=== PATIENT | male | born 1990 | race Caucasian/White ===

== ENCOUNTER 2017-04-17 09:00 | Outpatient (RCR) | payer MEDICAID, SELFPAY | END 2017-04-17 23:59 | LOC: PT 09:00 | PROVIDERS: Visit Provider Nurse Anesthetist, Certified Registered | DX: M54.6 Pain in thoracic spine (principal); M54.5 Low back pain | CPT/HCPCS: 97010; 97012; 97014; 97110; 97140; 97162; 97760; G0283 ==

== ENCOUNTER 2017-04-19 10:00 | Outpatient (RCR) | payer MEDICAID, SELFPAY | END 2017-04-19 23:59 | LOC: PT 10:00 | PROVIDERS: Family Provider Family Medicine; PCP Family Medicine; Visit Provider Anesthesiology | DX: M54.6 Pain in thoracic spine (principal); M54.5 Low back pain | CPT/HCPCS: 97010; 97012; 97014; 97110; G0283 ==

== ENCOUNTER 2017-04-20 08:55 | Emergency (ER) | payer MEDICAID, SELFPAY ==
[2017-04-20 09:04] VITALS: BP 167/110; PULSE 89; RESP 18; TEMP 36.8; O2SAT 98; BMI 25.7
--- NOTE | 2017-04-20 09:25 | HMH.EDWNDL ---
ED Disposition Clinical Impression: Avulsion of skin Disposition: Home, Self-Care Condition on Discharge: Good Instructions: DI for Avulsion Laceration (Not Requiring Sutures) Additional Instructions: Keep wound covered and dry; cleanse and change bandage twice daily; watch for infection ;recommend wound check by your family MD in one to three days. Tylenol and/or Advil as needed. Referrals: Justin Morton MD [Staff Physician] - - Critical Care Critical Care Time: No Attestation: On , the high probability of a clinically significant, sudden or life threatening deterioration of the following system(s) required my full and direct attention, intervention and personal management. The time I documented below is in addition to time spent performing reported procedures but includes the following listed in this critical care notation. Medical Decision Making - Medical Records Medical records reviewed: Yes: I reviewed the patient's medical records. Vital Signs: 04/20/17 09:04 Temperature 98.3 F Temperature Source Oral Pulse Rate [Right Brachial] 89 Respiratory Rate 18 Blood Pressure [Right Arm] 167/110 Blood Pressure Mean [Right Arm] 129 Blood Pressure Source [Right Arm] Automatic Cuff Blood Pressure Position [Right Arm] Right Lateral 02 Sat by Pulse Oximetry 98 Oxygen Delivery Method Room Air Orders (Tests/Meds): ED MEDICATIONS Discontinued Medications Generic Name Dose Route Start Last Admin Trade Name Freq PRN Reason Stop Dose Admin Tetanus/Diphtheria Toxoids 0.5 ml 04/20/17 09:16 Tenivac 0.5ml Syringe IM 04/20/17 09:17 .ONCE ONE - Alfredo Inquiry Pt receiving controlled substance: No Wound/Laceration HPI - General Chief Complaint: Wound/Laceration Stated Complaint: lac left index finger Time Seen by Provider: 04/20/17 09:15 Mode of Arrival: Ambulatory Source of Information: Patient Limitations: No Limitations Description of Symptoms (Recalled from ER Triage Doc. by RN): pt states he was slicing potatoes for breakfast when he incidentally sliced a piece off the. end of his index finger, left side. 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) Place: home Patient tetanus UTD: No (updated today in ED; cannot recall most recent) Context: accidental Associated symptoms: none Treatments prior to arrival: bandage - Related Data Allergies Allergy/AdvReac Type Severity Reaction Status Date / Time No Known Allergies Allergy Unverified 04/03/17 14:49 [facility] History I have reviewed the patient's past medical history: Yes Fractures: No - *Social History Educational Level: Attended High School Smoking Status: Unknown if ever smoked Alcohol Intake: former Alcohol Intake Frequency:: a few times a month - Psychiatric History Expresses thoughts of harming self/others: None Suicide Plan Description: No Plan ROS Obtained: Yes All systems reviewed & no additional complaints except as noted Physical Exam - General General appearance: alert, in no apparent distress - Eye Eye exam: Present: normal appearance, PERRL, EOMI - Respiratory Respiratory exam: Absent: respiratory distress - Cardiovascular Cardiovascular exam: Present: other (radial pulse normal LUE) - Extremities Exam Extremities exam: Present: full ROM, normal capillary refill. Absent: joint swelling - Neurological Exam Neurological exam: Present: alert, oriented X3. Absent: motor sensory deficit - Skin Skin exam: Present: warm, dry, other (0.5 mm shallow avulsion palmar aspect L fingertip; no bone or tendon exposure; cleansed and examined; bleeding controlled. No FB or debris. )
--- NOTE | 2017-04-20 09:28 | ED_ITS ---
ED Disposition Clinical Impression: Avulsion of skin Disposition: Home, Self-Care Condition on Discharge: Good Instructions: DI for Avulsion Laceration (Not Requiring Sutures) Additional Instructions: Keep wound covered and dry; cleanse and change bandage twice daily; watch for infection ;recommend wound check by your family MD in one to three days. Tylenol and/or Advil as needed. Referrals: Justin Morton MD [Staff Physician] - - Critical Care Critical Care Time: No Attestation: On , the high probability of a clinically significant, sudden or life threatening deterioration of the following system(s) required my full and direct attention, intervention and personal management. The time I documented below is in addition to time spent performing reported procedures but includes the following listed in this critical care notation. Medical Decision Making - Medical Records Medical records reviewed: Yes: I reviewed the patient's medical records. Vital Signs: 04/20/17 09:04 Temperature 98.3 F Temperature Source Oral Pulse Rate [Right Brachial] 89 Respiratory Rate 18 Blood Pressure [Right Arm] 167/110 Blood Pressure Mean [Right Arm] 129 Blood Pressure Source [Right Arm] Automatic Cuff Blood Pressure Position [Right Arm] Right Lateral 02 Sat by Pulse Oximetry 98 Oxygen Delivery Method Room Air Orders (Tests/Meds): ED MEDICATIONS Discontinued Medications Generic Name Dose Route Start Last Admin Trade Name Freq PRN Reason Stop Dose Admin Tetanus/Diphtheria Toxoids 0.5 ml 04/20/17 09:16 Tenivac 0.5ml Syringe IM 04/20/17 09:17 .ONCE ONE - Alfredo Inquiry Pt receiving controlled substance: No Wound/Laceration HPI - General Chief Complaint: Wound/Laceration Stated Complaint: lac left index finger Time Seen by Provider: 04/20/17 09:15 Mode of Arrival: Ambulatory Source of Information: Patient Limitations: No Limitations Description of Symptoms (Recalled from ER Triage Doc. by RN): pt states he was slicing potatoes for breakfast when he incidentally sliced a piece off the. end of his index finger, left side. 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 Patient tetanus UTD: No (updated today in ED; cannot recall most recent) Context: accidental Associated symptoms: none Treatments prior to arrival: bandage - Related Data Allergies Allergy/AdvReac Type Severity Reaction Status Date / Time No Known Allergies Allergy Unverified 04/03/17 14:49 [facility] History I have reviewed the patient's past medical history: Yes Fractures: No - *Social History Educational Level: Attended High School Smoking Status: Unknown if ever smoked Alcohol Intake: former Alcohol Intake Frequency:: a few times a month - Psychiatric History Expresses thoughts of harming self/others: None Suicide Plan Description: No Plan ROS Obtained: Yes All systems reviewed & no additional complaints except as noted Physical Exam - General General appearance: alert, in no apparent distress - Eye Eye exam: Present: normal appearance, PERRL, EOMI - Respiratory Respiratory exam: Absent: respiratory distress - Cardiov
[2017-04-20 09:41] VITALS: BP 139/72; PULSE 75; RESP 16; O2SAT 99
== END 2017-04-20 09:41 | disposition home or self-care (01) ==
LOC: ER 09:34
PROVIDERS: Emergency Provider Emergency Medicine; Family Provider Family Medicine; PCP Family Medicine
DX: S61.211A Laceration without foreign body of left index finger without damage to nail, initial encounter (principal); W26.0XXA Contact with knife, initial encounter; Y93.G3 Activity, cooking and baking; Y92.000 Kitchen of unspecified non-institutional (private) residence as the place of occurrence of the external cause; Z23 Encounter for immunization
CPT/HCPCS: 90714; 96372; 99282

== ENCOUNTER → 2017-04-23 09:17 | Outpatient (POV) | payer MEDICAID, SELFPAY ==
[2017-04-23 09:29] VITALS: BP 125/75; PULSE 68; RESP 18; BMI 25.7
--- NOTE | 2017-04-23 10:00 | HMH.PAINSOAP ---
[facility] Pain Management SOAP Note Subjective:: Patient is a pleasant 26-year-old white male that returns her pain clinic today for follow-up visit. We initially saw this patient on 02/26/2017. His complaint at that time was low thoracic high lumbar pain. Patient had surgery consultation with Dr. Natarajan. No surgery was recommended. The patient returns today after receiving 8 weeks of physical therapy. He reports minimal relief. Patient also been taking NSAIDs for his pain with minimal relief. Patient's pain is low thoracic. He describes a constant, dull, sharp, stabbing at times. Patient reports pain is 8/9 times. He does have radicular symptoms associated with this. His thoracic MRI does show degenerative disc at T6-7, T7-8, T8-9 levels. Disc at T8-9 does indent the thecal sac. I discussed in detail with the patient regarding thoracic epidural steroid injection at the T8-9 level. He is to proceed Objective:: Patient is awake alert oriented ?3. In no acute distress. Flexion extension lumbar spine somewhat guarded secondary to pain. Deep tendon reflexes upper and lower extremities normal. Motor strength upper and lower extremities normal. There is no gross sensory deficit. Gait is normal. 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 Thoracic radicular symptoms. Plan:: Patient has tried and failed conservative measures such as respiratory care assistant, physical therapy, NSAIDs. I suggest we move forward with thoracic epidural steroid injection at the T9 level. Discussed in detail with the patient regarding the injection. He understands. Wishes to proceed.
--- NOTE | 2017-04-23 10:04 | P.CONS_ITS ---
[facility] Pain Management SOAP Note Subjective:: Patient is a pleasant 26-year-old white male that returns her pain clinic today for follow-up visit. We initially saw this patient on 02/26/2017. His complaint at that time was low thoracic high lumbar pain. Patient had surgery consultation with Dr. Natarajan. No surgery was recommended. The patient returns today after receiving 8 weeks of physical therapy. He reports minimal relief. Patient also been taking NSAIDs for his pain with minimal relief. Patient's pain is low thoracic. He describes a constant, dull, sharp, stabbing at times. Patient reports pain is 8/9 times. He does have radicular symptoms associated with this. His thoracic MRI does show degenerative disc at T6-7, T7- 8, T8-9 levels. Disc at T8-9 does indent the thecal sac. I discussed in detail with the patient regarding thoracic epidural steroid injection at the T8- 9 level. He is to proceed Objective:: Patient is awake alert oriented ?3. In no acute distress. Flexion extension lumbar spine somewhat guarded secondary to pain. Deep tendon reflexes upper and lower extremities normal. Motor strength upper and lower extremities normal. There is no gross sensory deficit. Gait is normal. 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 Thoracic radicular symptoms. Plan:: Patient has tried and failed conservative measures such as respiratory care faculty, physical therapy, NSAIDs. I suggest we move forward with thoracic epidural steroid injection at the T9 level. Discussed in detail with the patient regarding the injection. He understands. Wishes to proceed.
== END ==
PROVIDERS: Family Provider Family Medicine; PCP Family Medicine; Visit Provider Nurse Anesthetist, Certified Registered
DX: M51.14 Intervertebral disc disorders with radiculopathy, thoracic region (principal)
CPT/HCPCS: 99212

== ENCOUNTER → 2017-05-18 13:26 | Day surgery (SDC) | payer MEDICAID, SELFPAY ==
[2017-05-18 13:35] VITALS: BP 138/78; PULSE 79; RESP 18; TEMP 36.5; O2SAT 99; BMI 25.7
[2017-05-18 14:00] VITALS: BP 137/75; PULSE 94; RESP 18
[2017-05-18 14:02] VITALS: BP 132/81; PULSE 85; RESP 18
--- NOTE | 2017-05-18 14:08 | HMH.PMPROC ---
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 He does have degenerative disc disease of the thoracic spine at T6-7, T7-8, T8-9. He is not a surgical candidate. He has seen Dr. Natarajan. He has failed all conservative therapy including nonsteroidal anti-inflammatories. We will do a thoracic epidural steroid injection today to see if this helps him with his pain symptoms. Procedure Details:: Thoracic epidural steroid injection under fluoroscopy Informed consent was obtained and the risk and benefits of the procedure was explained to the patient. Patient was taken to the procedure room. The back was prepped using ChloraPrep. C-arm fluoroscopy was used to view the thoracic spine. The skin and subtest tissues were anesthetized using lidocaine. I placed a 17-gauge Touhy epidural needle into the T8-T9 interspace. I advanced using [id number] to air and fluoroscopic guidance until the epidural space was reached. Confirmation of needle placement in the epidural space was with dye. After this we injected 1 mL lidocaine 1.5% and Depo-Medrol 80 mg. The patient tolerated the procedure well with no complication. Plan and Disposition:: We will follow-up with him in 2 weeks. We will reevaluate his symptoms at that time.
[2017-05-18 14:14] VITALS: BP 149/79; PULSE 70; TEMP 36.5
--- NOTE | 2017-05-18 14:34 | P.PCN_ITS ---
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 He does have degenerative disc disease of the thoracic spine at T6-7 , T7-8, T8-9. He is not a surgical candidate. He has seen Dr. Natarajan. He has failed all conservative therapy including nonsteroidal anti-inflammatories. We will do a thoracic epidural steroid injection today to see if this helps him with his pain symptoms. Procedure Details:: Thoracic epidural steroid injection under fluoroscopy Informed consent was obtained and the risk and benefits of the procedure was explained to the patient. Patient was taken to the procedure room. The back was prepped using ChloraPrep. C-arm fluoroscopy was used to view the thoracic spine. The skin and subtest tissues were anesthetized using lidocaine. I placed a 17-gauge Touhy epidural needle into the T8-T9 interspace. I advanced using [id number] to air and fluoroscopic guidance until the epidural space was reached. Confirmation of needle placement in the epidural space was with dye. After this we injected 1 mL lidocaine 1.5% and Depo-Medrol 80 mg. The patient tolerated the procedure well with no complication. Plan and Disposition:: We will follow-up with him in 2 weeks. We will reevaluate his symptoms at that time.
== END ==
PROVIDERS: Family Provider Family Medicine; PCP Family Medicine; Visit Provider Anesthesiology
DX: M51.14 Intervertebral disc disorders with radiculopathy, thoracic region (principal)
CPT/HCPCS: 62321; J1040; Q9966

== ENCOUNTER → 2017-10-29 10:50 | Outpatient (CLI) | payer MEDICAID, SELFPAY ==
--- NOTE | 2017-10-29 10:55 | US_ITS ---
ULTRASOUND THYROID HISTORY: Thyroid enlarged PROCEDURE: Multiple sagittal and transverse ultrasound images of the thyroid. COMPARISON: June 2015 thyroid ultrasound FINDINGS No significant change since previous June, thyroid ultrasound Again we see enlarged gland with very coarse inhomogeneous pattern throughout both right and left lobe as well as isthmus. Findings likely reflect underlying thyroiditis or possibly a multinodular pattern without discrete or dominant nodule. Perhaps slight increase color Doppler flow throughout both right and left lobe RIGHT Lobe: 4.8 cm x 2.5 cm wide x 2.5 cm AP LEFT Lobe: 4.5 cm x 2 cm wide x 2.5 cm AP Gland appears to remain enlarged although measurements are slightly less than previous study I doubt there is been significant change IMPRESSION: Thyromegaly Enlarged gland bilateral , with Very Coarse inhomogeneous pattern bilaterally. Gland appears similar to previous study from 2016.. No significant change No dominant nodules.
== END ==
PROVIDERS: Family Provider Family Medicine; PCP Family Medicine; Visit Provider Family Medicine
DX: E03.9 Hypothyroidism, unspecified (principal)
CPT/HCPCS: 76536

== ENCOUNTER → 2019-05-14 16:23 | Outpatient (CLI) | payer OTHER, SELFPAY ==
--- NOTE | 2019-05-14 16:30 | XR_ITS ---
PROCEDURE: XR KNEE LT 3V CLINICAL INDICATION: LT KNEE PAIN COMPARISON: None FINDINGS: No fracture or dislocation. No lytic or blastic change. There is normal mineralization. The joint spaces are well-preserved. No significant degenerative/arthritic changes. No erosive changes evident. Other findings:None. IMPRESSION: Negative left knee Dictated by: Tesfaye Bonilla MD 05/14/2019 17:41 Electronically signed by Tesfaye Bonilla MD in [place] 05/14/2019 17:41
--- NOTE | 2019-05-14 16:30 | XR_ITS ---
PROCEDURE: XR CERVICAL SPINE 2V CLINICAL INDICATION: NECK PAIN COMPARISON: No exams were available for comparison FINDINGS: There is normal alignment. No fracture or dislocation is evident. The disc spaces are well preserved. No lytic or blastic change. No cervical rib IMPRESSION: Negative cervical spine Dictated by: Tesfaye Bonilla MD 05/14/2019 17:39 Electronically signed by Tesfaye Bonilla MD in [place] 05/14/2019 17:39
== END ==
PROVIDERS: PCP Family Medicine; Visit Provider Physician Assistant
DX: M25.562 Pain in left knee (principal); M54.2 Cervicalgia
CPT/HCPCS: 72040; 73562

== ENCOUNTER → 2019-05-22 15:01 | Outpatient (CLI) | payer OTHER, SELFPAY ==
--- NOTE | 2019-05-22 15:13 | MR_ITS ---
PROCEDURE: MR CERVICAL SPINE WO CON CLINICAL INDICATION: NECK PAIN, PARESTHESIA OF SKIN, PAIN IN LEFT ARM, PAIN IN RI Neck pain, bilateral arm pain with numbness and tingling COMPARISON: XR CERVICAL SPINE 2V from 05/14/2019 TECHNIQUE: Standard multiplanar multiecho sequences are performed without contrast. 3-D MIP and myelographic images are also rendered and reviewed FINDINGS: Normal alignment. Cranial cervical junction has an unremarkable appearance. The cervical cord has an unremarkable appearance. No disc herniation canal stenosis or significant degenerative changes are evident. No foraminal narrowing or lateral recess narrowing. There is slight decrease in the disc height at C4-C5 and C5-C6. IMPRESSION: Essentially negative MRI of the cervical spine Dictated by: Tesfaye Bonilla MD 05/23/2019 09:19 Electronically signed by Tesfaye Bonilla MD in [place] 05/23/2019 09:19
== END ==
PROVIDERS: PCP Family Medicine; Visit Provider Physician Assistant
DX: M54.2 Cervicalgia (principal); R20.2 Paresthesia of skin; M79.602 Pain in left arm; M79.601 Pain in right arm
CPT/HCPCS: 72141; 76376

== ENCOUNTER 2020-04-16 19:07 | Emergency (ER) | payer OTHER, SELFPAY ==
[2020-04-16 19:30] VITALS: BP 166/94; PULSE 66; RESP 16; TEMP 36.9; O2SAT 98; BMI 31.1
--- NOTE | 2020-04-16 19:42 | HMH.EDUTC ---
[facility] [place] Dis[place] Clinical Impression: URI (upper respiratory infection) Qualifiers: URI type: unspecified URI Qualified Code(s): J06.9 - Acute upper respiratory infection, unspecified Disposition: Home, Self-Care Condition on Discharge: Good Instructions: Sore Throat, Sinusitis, DI for COVID-19 (Suspected or Confirmed ) Additional Instructions: *Monitor Temp, Over the counter Motrin or Tylenol as directed/as needed Tylenol every 4 hours and Motrin every 6 hours (as long as your family doctor has told you that you can take it) for fever or pain. and straight to ER if unable to lower temp less than 101.0 after medication given *Warm salt water gargles may help to soothe the throat *Throat Lozenges *Warm fluids like tea with honey may help to soothe the throat *Sleep elevated *Humidifier/Vaporizer Follow up IMMEDIATELY for new or worsening symptoms or no Noticeable improvement over the next 48-72 hours. 911 for difficulty breathing or swallowing You were tested for today for COVID19 your test result should be back in the next 24-48 hours, you may call to the [facility] to see if your test results are back in the next 48 hours [phone] [facility] hours are 9am-9pm You was given a handout with instructions for Self Quarantine and Self isolation for while you wait on test results and what to do if they are positive If you are positive the Health Dept will be contacting you also Prescriptions: Azithromycin [Z-Brandan 250mg Tab] 250 mg PO DIRECTED #6 tab Transmission Status: Pending to [id number] Referrals: Catalina Morton MD [Primary Care Provider] - As needed Forms: Work/School Release Time of Disposition: 19:52 Medical Decision Making - Alfredo Inquiry Pt receiving controlled substance: No Alfredo was queried for this patient: No Vital Signs: 04/16/20 19:30 Temperature 98.4 F Temperature Source Oral Pulse Rate [Right] 66 Respiratory Rate 16 Blood Pressure [Right Arm] 166/94 H Blood Pressure Mean [Right Arm] 118 Blood Pressure Source [Right Arm] Automatic Cuff Blood Pressure Position [Right Arm] Sitting 02 Sat by Pulse Oximetry 98 Oxygen Delivery Method Room Air Orders (Tests/Meds): ORDERS Category Date Time Status Covid-19 Nasal PCR ([facility]) Routine Lab 04/16/20 19:32 Received [facility] [place] HPI - General Stated complaint: covid test Time Seen by Provider: 04/16/20 19:42 Mode of Arrival: Ambulatory Source of Information: Patient Limitations: No Limitations Description of Symptoms (Recalled from Triage Doc. by RN): body aches, sore throat, congestion and cough that started two days ago HEENT Symptoms (Recalled from RN notes): No Resp Symptoms (Recalled from RN notes): No Skin Symptoms (Recalled from RN notes): No MS Symptoms (Recalled from RN notes): No Functional Status (Recalled from RN notes): na - History of Present Illness Provider Complaint: Patient state that he has been having sinus pain and pressure, sore throat, body aches, ear pain and chills States that he was seen by his PCP and was given steriod dose pack States that he isnt feeling any better and now blowing yellowish green from his nose so he came in to get checked for COVID - Related Data Home Medications Medication Instructions Recorded Confirmed Levothyroxine Sodium 200 mcg PO DAILY 12/05/17 05/26/19 [Levothyroxine 200mcg (0.2mg) Tab] allopurinoL [Allopurinol 100mg 100 mg PO DAILY 12/05/17 05/26/19 tablet] Previous Rx's Medication Instructions Recorded Azithromycin [Z-Brandan 250mg Tab*] 250 mg PO UD DOSE PK #6 tab 05/26/19 Brompheniramine/Pseudoephed/Dm 5 ml PO Q6HP PRN #240 syrup 05/26/19 [Bromfed Dm Cough Syrup] predniSONE [Deltasone 10mg tablet] 10 mg PO BID 3 Days #6 tab 05/26/19 Azithromycin [Z-Brandan 250mg Tab] 250 mg PO DIRECTED #6 tab 04/16/20 Allergies Allergy/AdvReac Type Severity Reaction Status Date / Time No Known Allergies Allergy Verified 12/05/17 01:10 - Worker's Comp Is thi
[2020-04-16 20:04] VITALS: BP 154/70; PULSE 87; RESP 16; TEMP 36.9; O2SAT 98
--- NOTE | 2020-04-17 13:30 | PC.NURSE ---
patient notified of positive covid results
== END 2020-04-16 20:06 | disposition home or self-care (01) ==
PROVIDERS: Emergency Provider Nurse Practitioner; PCP Family Medicine
DX: U07.1 COVID-19 (principal)
CPT/HCPCS: 99202; G0463; U0003

== ENCOUNTER 2020-05-07 11:14 | Emergency (ER) | payer OTHER, SELFPAY ==
[2020-05-07 11:15] VITALS: BP 157/82; PULSE 74; RESP 22; TEMP 37; O2SAT 98; BMI 30.7
--- NOTE | 2020-05-07 11:17 | HMH.EDGENADL ---
ED Disposition Clinical Impression: Pneumonia Qualifiers: Pneumonia type: due to unspecified organism Laterality: left Lung location: upper lobe of lung Qualified Code(s): J18.9 - Pneumonia, unspecified organism Disposition: Home, Self-Care Condition on Discharge: Good Additional Instructions: Take antibiotics as prescribed. Drink plenty of clear fluids. Use ibuprofen/Tylenol as needed. Always use ibuprofen with food. Return immediately if recurrent shortness of breath, fever/chills, decreased p.o. intake, or other new concerning symptoms. Prescriptions: Azithromycin [Z-Brandan 250mg Tab] 250 mg PO DIRECTED #6 tab Transmission Status: Pending to [id number] Referrals: Catalina Morton MD [Primary Care Provider] - - Critical Care Critical Care Time: No Attestation: On , the high probability of a clinically significant, sudden or life threatening deterioration of the following system(s) required my full and direct attention, intervention and personal management. The time I documented below is in addition to time spent performing reported procedures but includes the following listed in this critical care notation. Medical Decision Making - Medical Records Medical records reviewed: Yes: I reviewed the patient's medical records. - Alfredo Inquiry Pt receiving controlled substance: No Vital Signs: 05/07/20 11:15 05/07/20 12:26 05/07/20 12:30 Temperature 98.6 F Temperature Source Oral Pulse Rate [Radial] 74 81 78 Respiratory Rate 22 18 20 Blood Pressure [Right Arm] 157/82 H 132/93 H 132/93 H Blood Pressure Mean [Right Arm] 107 106 106 Blood Pressure Source [Right Arm] Automatic Cuff Blood Pressure Position [Right Arm] Sitting Supine 02 Sat by Pulse Oximetry 98 95 92 L Oxygen Delivery Method Room Air Room Air 05/07/20 13:00 05/07/20 13:30 Temperature Temperature Source Pulse Rate [Radial] 76 73 Respiratory Rate 20 20 Blood Pressure [Right Arm] 136/93 H 130/90 Blood Pressure Mean [Right Arm] 107 103 Blood Pressure Source [Right Arm] Automatic Cuff Automatic Cuff Blood Pressure Position [Right Arm] Supine Supine 02 Sat by Pulse Oximetry 92 L 95 Oxygen Delivery Method Room Air Room Air - Lab Data Lab Results 05/07/20 11:40: WBC 7.0, RBC 5.38, Hgb 16.8, Hct 48.6, MCV 90.5, MCH 31.3 H, MCHC 34.6, RDW 13.9, Plt Count 284, MPV 8.1, Neut % (Auto) 54.4, Lymph % (Auto) 34.2, Mchenry % (Auto) 8.6, Eos % (Auto) 2.2, Baso % (Auto) 0.6, Neut # (Auto) 3.8, Lymph # (Auto) 2.4, Mchenry # (Auto) 0.6, Eos # (Auto) 0.2, Baso # (Auto) 0.0 05/07/20 11:40: Sodium 142, Potassium 4.3, Chloride 106, Carbon Dioxide 30, Anion Gap 10.3, BUN 17, Creatinine 1.20, Estimated Creat Clear 126, Estimated GFR 71, Est GFR ( Amer) 85, Glucose 95, Calcium 9.8, Total Bilirubin 0.7, AST 50, ALT 75, Alkaline Phosphatase 49, Troponin I < 0.01, Total Protein 8.0, Albumin 4.6, Globulin 3.4 H, Albumin/Globulin Ratio 1.4 Result diagrams: 05/07/20 11:40 05/07/20 11:40 Orders (Tests/Meds): ED MEDICATIONS Discontinued Medications Generic Name Dose Route Start Last Admin Trade Name Freq PRN Reason Stop Dose Admin Lactated Ringer's 1,000 mls @ 999 mls/hr 05/07/20 11:45 05/07/20 11:44 Lactated Ringer's 1000 Ml Bag IV 05/07/20 12:45 999 mls/hr .Q1H1M SARAH Administration ORDERS Category Date Time Status Troponin I Q3H Lab 05/07/20 14:45 Ordered Troponin I Q3H Lab 05/07/20 17:45 Ordered - ECG Data Tracing #1 I reviewed this ECG and interpreted as documented below: EKG NSR @ 70 bpm; axis normal; no acute ST elevation/depression Medical Decision Narrative: Patient 29-year-old male presenting with some dyspnea and fatigue. Patient recently diagnosed with Covid which could be contributing to his presentation. EKG negative for acute ischemia/dysrhythmia. PERC rule applied. Patient PERC negative. X-ray will be obtained to ensure no secondary bacterial pneumonia. Basic lab work alex
--- NOTE | 2020-05-07 11:33 | XR_ITS ---
PROCEDURE: XR CHEST PORTABLE CLINICAL HISTORY: dyspnea + covid positive 3 weeks ago COMPARISON: CR CXR CHEST(2 VIEWS-NOT PORTABLE) from 01/21/2013 FINDINGS: The cardiomediastinal silhouette and pulmonary vascularity are within normal limits. Faint ground-glass infiltrate present in the left upper lobe. Minimal atelectatic changes left lower lobe. No acute bony abnormalities. IMPRESSION: Faint left upper lobe infiltrate Dictated by: Tesfaye Bonilla MD 05/07/2020 13:30 Tesfaye Bonilla MD in [place] 05/07/2020 13:30
--- NOTE | 2020-05-07 11:34 | ECG_ITS ---
APPROVED REPORT Exam: Resting ECG HR:70 bpm ECG Measurements Heart Rate 70 AXES KS 154 P 33 QRSd 88 QRS 46 QT 380 T 35 QTc 410 Conclusion Normal sinus rhythm Normal ECG Electronically signed by : Kory Helm, 05/07/2020 18:00:57
[2020-05-07 11:45] LABS: Basophils % 0.6 % (0.1-2.0); Eosinophils # 0.2 K/mm3 (0.0-0.4); Eosinophils % 2.2 % (0.1-12.0); Hematocrit 48.6 % (42.0-52.0); Hemoglobin 16.8 g/dL (14.1-18.0); Lymphocytes # 2.4 K/mm3 (0.7-4.5); Lymphocytes % 34.2 % (10-50); Mean Corpuscular HGB Conc 34.6 g/dL (31.8-35.4); Mean Corpuscular Hemoglobin 31.3 pg (27.0-31.2); Mean Corpuscular Volume 90.5 fl (80-94); Mean Platelet Volume 8.1 fl (7.4-10.4); Monocytes # 0.6 K/mm3 (0.1-1.0); Monocytes % 8.6 % (1.7-9.3); Neutrophils # 3.8 K/mm3 (1.8-7.8); Neutrophils % 54.4 % (37.0-80.0); Platelet Count 284 K/mm3 (142-424); Red Blood Count 5.38 M/mm3 (4.60-6.20); Red Cell Distribution Width 13.9 % (11.5-17.5)
[2020-05-07 11:51] LABS: Chloride 106 mmol/L (98-107); Potassium 4.3 mmoL/L (3.5-5.1); Sodium 142 mmol/L (136-145)
[2020-05-07 11:53] LABS: Alanine Aminotransferase 75 U/L (12-78); Aspartate Amino Transferase 50 U/L (17-59); Blood Urea Nitrogen 17 mg/dl (9-20); Creatinine Clearance Estimated 126 mL/min (50-200); Estimated Glomerular Filt Rate 71 ml/min (>60); GFR (African American) 85 ML/MIN (>60)
[2020-05-07 11:54] LABS: Albumin Level 4.6 g/dl (3.5-5.0); Albumin/Globulin Ratio 1.4 (1.1-1.8); Alkaline Phosphatase 49 U/L (38-126); Anion Gap 10.3 mEq/L (5-15); Bilirubin,Total 0.7 mg/dl (0.2-1.3); Calcium 9.8 mg/dl (8.4-10.2); Carbon Dioxide 30 mmol/L (22.0-30.0); Globulin 3.4 g/dL (1.3-3.2); Glucose 95 mg/dl (74-100)
[2020-05-07 12:08] LABS: Troponin I < 0.01 ng/ml (0.00-0.034)
[2020-05-07 12:26] VITALS: BP 132/93; PULSE 81; RESP 18; O2SAT 95
[2020-05-07 12:30] VITALS: BP 132/93; PULSE 78; RESP 20; O2SAT 92
[2020-05-07 13:00] VITALS: BP 136/93; PULSE 76; RESP 20; O2SAT 92
[2020-05-07 13:30] VITALS: BP 130/90; PULSE 73; RESP 20; O2SAT 95
[2020-05-07 14:18] VITALS: BP 130/90; PULSE 73; RESP 20; TEMP 37; O2SAT 95
== END 2020-05-07 14:20 | disposition home or self-care (01) ==
PROVIDERS: Emergency Provider Emergency Medicine; PCP Family Medicine
DX: U07.1 COVID-19 (principal); J12.82 Pneumonia due to coronavirus disease 2019; E03.9 Hypothyroidism, unspecified; Z79.899 Other long term (current) drug therapy
CPT/HCPCS: 71045; 80053; 84484; 85025; 93005; 96365; 99283

== ENCOUNTER → 2020-07-07 09:29 | Outpatient (CLI) | payer OTHER, SELFPAY ==
--- NOTE | 2020-07-07 09:33 | XR_ITS ---
PROCEDURE: XR ELBOW LT MIN 3V CLINICAL INDICATION: left elbow pain COMPARISON: No exams were available for comparison FINDINGS: No fracture or dislocation. No lytic or blastic change. There is normal mineralization. The joint spaces are well-preserved. No significant degenerative/arthritic changes. No erosive changes evident. Other findings:None. IMPRESSION: No acute findings. Dictated by: Tesfaye Bonilla MD 07/07/2020 16:30 Tesfaye Bonilla MD in [place] 07/07/2020 16:30
--- NOTE | 2020-07-07 09:33 | XR_ITS ---
PROCEDURE: XR ELBOW RT MIN 3V CLINICAL INDICATION: right elbow pain COMPARISON: No exams were available for comparison FINDINGS: No fracture or dislocation. No lytic or blastic change. There is normal mineralization. The joint spaces are well-preserved. No significant degenerative/arthritic changes. No erosive changes evident. Other findings:None. IMPRESSION: No acute findings. Dictated by: Tesfaye Bonilla MD 07/07/2020 16:29 Tesfaye Bonilla MD in [place] 07/07/2020 16:29
== END ==
PROVIDERS: PCP Family Medicine; Visit Provider Orthopaedic Surgery
DX: M25.522 Pain in left elbow (principal); M25.521 Pain in right elbow
CPT/HCPCS: 73080

== ENCOUNTER 2023-09-10 11:50 | Emergency (ER) | payer OTHER, SELFPAY ==
[2023-09-10 12:55] VITALS: BP 151/106; PULSE 107; RESP 20; TEMP 37.4; O2SAT 97; BMI 33.5
[2023-09-10 13:00] LABS: Coronavirus 19, PCR Not Detected (NotDetected); Influenza A, PCR Not Detected (NotDetected); Influenza B, PCR Not Detected (NotDetected)
--- NOTE | 2023-09-10 13:41 | ED_ITS ---
Discharge Plan Disposition Patient Disposition: Home, Self-Care Condition: Good Prescriptions Prescriptions: New azithromycin [Zithromax Z-Brandan] 250 mg tablet See Rx Instructions .ROUTE .COMPLEX 5 Days Qty: 6 0RF Rx Instructions: For 250 mg dose pack: take 500 mg today (day 1), then 250 mg for 4 days (days 2-5) prednisone 20 mg tablet 20 mg PO BID 5 Days Qty: 10 0RF llkrlltgmzawxtk-kdjgfqrfe-VM [Bromfed DM] 2-30-10 mg/5 mL syrup 10 ml PO Q6H PRN (Reason: cold symptoms) Qty: 200 0RF cefdinir 300 mg capsule 300 mg PO BID Qty: 20 0RF guaifenesin [Mucinex] 600 mg tablet extended release 12hr 1,200 mg PO BID PRN (Reason: cough) Qty: 20 0RF albuterol sulfate [Proventil HFA] 90 mcg/actuation HFA aerosol inhaler 1 - 2 puff inhalation Q4-6H PRN (Reason: shortness of breath or wheezing) Qty: 8.5 0RF No Action cyanocobalamin (vitamin B-12) 5,000 mcg capsule 5,000 mcg PO DAILY cholecalciferol (vitamin D3) 125 mcg (5,000 unit) capsule 125 mcg PO DAILY allopurinol 100 MG tablet 100 mg PO DAILY levothyroxine 200 MCG tablet 200 mcg PO DAILY Referrals Follow up/Referrals: Provider,Referral, MD [Primary Care Provider] - See instructions Activity Restrictions/Add. Instructions Additional Instructions/Restrictions: * Start azithromycin today and Cefdir tomorrow Be sure to complete entire prescription even if feeling better * Monitor temp. Tylenol every 4 hours as needed and / or ibuprofen every 6 hours as needed ( As long as your primary care physician has told you that it ok to take both. For fever/aches/pains ER if no less than 101 despite Tylenol or Motrin * Humidifier/vaporizer or hot steamy shower * Inhaler every 4-6 hours as needed like we discussed. If unsure how to use it, ask pharmacist to demonstrate how. Should help open airways and improve cough, wheezing, and shortness of breath * Mucinex during the day for your cough and cough suppressant only at night. Be sure to drink lots of water. *Bromfed may cause drowsiness. Know how it effects you (your child) before driving, caring for small child, or sending your child to school. Not other antihistamines/allergy medications while taking bromfed *Start steroid tomorrow. Helps with inflammation therefore, cough and wheezing. Follow directions on the package. Reviewed side effects. Patient reports taking them before. Follow up IMMEDIATELY for new or worsening of symptoms OR no noticeable improvement over the next 48-72 hours. 911 immediately for any life threatening symptoms such as chest pain or difficulty breathing Clinical Impressions Clinical Impression: Bronchitis Sinusitis Qualifiers: Sinusitis location: unspecified location Chronicity: acute Recurrence: non- recurrent Qualified Code(s): J01.90 - Acute sinusitis, unspecified Instructions Patient Instructions: Acute Bronchitis, DI for Sinusitis Discharge ED Provider: Marti Aguilar [facility] General Stated complaint: fever, cough, runny nose, headache, body aches Mode of Arrival: Ambulatory Source of Information: Patient Limitations: No Limitations Time Seen by Provider: 09/10/23 13:41 Description of Symptoms (Recalled from Triage Doc. by RN): PATIENT C/O HEADACHE, BODY ACHES, CONGESTION, FEVER AND COUGH X 5 DAYS HEENT Symptoms (Recalled from RN notes): Yes Resp Symptoms (Recalled from RN notes): Yes Skin Symptoms (Recalled from RN notes): No MS Symptoms (Recalled from RN notes): No Functional Status (Recalled from RN notes): WNL History of Present Illness Provider Complaint: Patient states that for the last 5 days he hasnt been feeling well States that he has been having sinus pain and pressure, drainage in the back of his throat, chest congestion and wet sounding cough States that since he had COVID a few years ago when he gets sick it can move to his chest pretty quick Related Data Home Medications Medication Instructions Recorded Confirmed allopurinol 100 mg tablet 100 mg PO DAILY gout 12/05/17 05/10/21 levothyroxine 200 mcg tablet 200 mcg PO DAILY thyroid 12/05/17 05/10/21 cholecalciferol (vitamin D3) 125 125 mcg PO DAILY 07/07/20 05/10/21 mcg (5,000 unit) capsule cyanocobalamin (vitamin B-12) 5,000 mcg PO DAILY 07/07/20 05/10/21 5,000 mcg capsule Previous Rx's Medication Instructions Recorded albuterol sulfate 90 mcg/actuation 1 - 2 puff inhalation Q4-6H PRN 09/10/23 aerosol inhaler (Proventil HFA) shortness of breath or wheezing #8.5 grams azithromycin 250 mg tablet See Rx Instructions PO .COMPLEX 5 09/10/23 (Zithromax Z-Brandan) days #6 tabs xkhzsqwfzzotgrv-rffwhplrghvtksa-HQ 10 ml PO Q6H PRN cold symptoms 09/10/23 2 mg-30 mg-10 mg/5 mL oral syrup #200 mL (Bromfed DM) cefdinir 300 mg capsule 300 mg PO BID #20 caps 09/10/23 guaifenesin 600 mg tablet, 1,200 mg (2 x 600 mg) PO BID PRN 09/10/23 extended release 12 hr (Mucinex) cough #20 tabs prednisone 20 mg tablet 20 mg PO BID 5 days #10 tabs 09/10/23 Allergies Allergy/AdvReac Type Severity Reaction Status Date / Time No Known Allergies Allergy Verified 05/10/21 15:02 Worker's Comp Is this a Worker's Comp case?: [facility] Disclaimer: The information contained in this section may have been updated after the patient was seen, as this information can be updated by other users. Medical History (Updated 09/10/23 @ 14:16 by Marti Aguilar APRN) Hernia Thyroid disease Kidney stone Depression Anxiety Social History Smoking Status: Never smoker second hand exposure: No alcohol intake: never current occupational status: other Travel in the last 8 weeks: None household members: other housing: house current occupational exposures/hazards: No caffeine: No ROS Obtained: Yes All systems reviewed & no additional complaints except as documented and Yes Systems reviewed as appropriate & no additional complaints except as documented Constitutional Constitutional: Reports system reviewed and no additional complaints, except as documented, Reports as per HPI, Reports body ache and Reports headache(s) ENT Ears, Nose, Mouth, and Throat: Reports system reviewed and no additional complaints, except as documented, Reports as per HPI, Reports headache(s), Reports sinus pain and Reports sinus pressure Cardiovascular Cardiovascular: Reports system reviewed and no additional complaints, except as documented and Reports as per HPI Respiratory Respiratory: Reports system reviewed and no additional complaints, except as documented, Reports as per HPI, Denies shortness of breath, Reports chest congestion and Reports cough Gastrointestinal Gastrointestingal: Reports system reviewed and no additional complaints, except as documented and as per HPI Neurologic Neurologic: Reports headache(s) Physical Exam General General appearance: alert and in no apparent distress ENT ENT exam: Present mucous membranes moist Expanded ENT Exam Nose exam: Present sinus tenderness Throat exam: Present other (Pharyngeal erythema noted with PND) Respiratory Respiratory exam: Present normal lung sounds bilaterally; Absent respiratory distress, wheezes or stridor Cardiovascular Cardiovascular exam: Present regular rate, normal rhythm and normal heart sounds Neurological Exam Neurological exam: Present alert, oriented X3 and normal gait Medical Decision Making Alfredo Inquiry Pt receiving controlled substance: No Alfredo was queried for this patient: No Vital Signs: 09/10/23 12:55 Temperature 99.4 F Temperature Source Oral Pulse Rate [Left Brachial] 107 H Respiratory Rate 20 Blood Pressure [Left Arm] 151/106 H Blood Pressure Mean [Left Arm] 121 Blood Pressure Source [Left Arm] Automatic Cuff Blood Pressure Position [Left Arm] Sitting 02 Sat by Pulse Oximetry 93 L Oxygen Delivery Method Room Air Lab Data Lab results reviewed: Yes I reviewed the patient's lab results. Lab Results 09/10/23 12:53: SARS-CoV-2 (PCR) Not detected, Influenza A Untype (PCR) Not detected, Influenza Type B (PCR) Not detected Orders (Tests/Meds): ORDERS Category Date Time Status Rapid PCR Covid and Flu A/B Stat Lab 09/10/23 12:53 Completed
[2023-09-10] MEDS: LIDOCAINE 1% 5ML PF VIAL IM (14:00)
[2023-09-10] MEDS: METHYLPREDNISOLONE SOD SUCC 125MG VIAL 125 MG IM (14:00)
[2023-09-10] MEDS: cefTRIAXone 1GM VIAL 1 GM IM (14:00)
[2023-09-10 14:17] VITALS: BP 151/106; PULSE 107; RESP 20; TEMP 37.4; O2SAT 97
== END 2023-09-10 14:22 | disposition home or self-care (01) ==
PROVIDERS: Emergency Provider Nurse Practitioner
DX: J20.9 Acute bronchitis, unspecified (principal); J01.90 Acute sinusitis, unspecified; R09.82 Postnasal drip; R51.9 Headache, unspecified; R05.9 Cough, unspecified
CPT/HCPCS: 87636; 96372; 99204; 99212; G0463; J0696

== ENCOUNTER 2024-01-28 08:29 | Emergency (ER) | payer OTHER, SELFPAY ==
[2024-01-28 08:35] VITALS: BP 157/107; PULSE 100; RESP 20; TEMP 36.7; O2SAT 95; BMI 34.0
--- NOTE | 2024-01-28 09:05 | ED_ITS ---
Discharge Plan Disposition Patient Disposition: Home, Self-Care Condition: Good Prescriptions Prescriptions: New azithromycin [Zithromax] 250 mg tablet 250 mg PO UD DOSE PK Qty: 6 0RF Rx Instructions: Take two (2) tablets today, then one (1) tablet days #2 thru #5 methylprednisolone 4 mg Tablets,Dose Pack 4 mg PO DIRECTED 6 Days Qty: 21 0RF Rx Instructions: Take 1 pack as directed for 6 days isxmpdfiyefjytk-xsolcjhhs-WB [Bromfed DM] 2-30-10 mg/5 mL Syrup 5 ml PO Q6H PRN (Reason: Cough) Qty: 240 0RF No Action levothyroxine [Synthroid] 150 mcg tablet 150 mcg PO DAILY Patient Comments: TAKE 1 TABLET BY MOUTH ONCE DAILY Referrals Follow up/Referrals: Kory Helm MD [Primary Care Provider] - See instructions Activity Restrictions/Add. Instructions Additional Instructions/Restrictions: Drink plenty of fluids. Take tylenol or ibuprofen for pain or fever. Take the medications as directed. Don't start the oral steroids (medrol dose pack) until tomorrow since you had the decadron (steroid) here today. Follow up with your regular doctor. GO TO THE ER FOR ANY WORSENING SYMPTOMS Use the eye drops as directed. Clinical Impressions Clinical Impression: Conjunctivitis of left eye, COVID-19 Sinusitis Qualifiers: Sinusitis location: unspecified location Chronicity: acute Recurrence: non- recurrent Qualified Code(s): J01.90 - Acute sinusitis, unspecified Instructions Patient Instructions: How to Instill Eye Drops, DI for Sinusitis, DI for Conjunctivitis Print Language Print Language: Bengali Discharge ED Provider: Valente Patel [facility] General Stated complaint: fever, congeston, Pain in R ear, cough Mode of Arrival: Ambulatory Source of Information: Patient Limitations: No Limitations Time Seen by Provider: 01/28/24 09:05 Description of Symptoms (Recalled from Triage Doc. by RN): PATIENT C/O FEVER, DRY COUGH, RIGHT EAR PAIN, AND CONGESTION SINCE SUNDAY EVENING HEENT Symptoms (Recalled from RN notes): Yes Resp Symptoms (Recalled from RN notes): Yes Skin Symptoms (Recalled from RN notes): No MS Symptoms (Recalled from RN notes): No Functional Status (Recalled from RN notes): WNL History of Present Illness Provider Complaint: He states that for the past 2 days he has had sore throat, chills, low grade fever, and a dry cough. Related Data Home Medications ?Medication ?Instructions ?Recorded ?Confirmed levothyroxine 150 mcg tablet 150 mcg PO DAILY 01/28/24 01/28/24 (Synthroid) Previous Rx's ?Medication ?Instructions ?Recorded azithromycin 250 mg tablet 250 mg PO UD DOSE PK #6 tabs 01/28/24 (Zithromax) jzimmrciwtieaeo-eoptqlkjjurggqf-SH 5 ml PO Q6H PRN Cough #240 mL 01/28/24 2 mg-30 mg-10 mg/5 mL oral syrup (Bromfed DM) methylprednisolone 4 mg tablets in 4 mg PO DIRECTED 6 days #21 tabs 01/28/24 a dose pack Allergies Allergy/AdvReac Type Severity Reaction Status Date / Time No Known Allergies Allergy Verified 05/10/21 15:02 Worker's Comp Is this a Worker's Comp case?: [facility] Disclaimer: The information contained in this section may have been updated after the patient was seen, as this information can be updated by other users. Medical History (Updated 01/28/24 @ 12:47 by Valente Patel APRN) Hernia Thyroid disease Kidney stone Depression Anxiety Social History Smoking Status: Never smoker second hand exposure: No alcohol intake: never current occupational status: other Travel in the last 8 weeks: None household members: other housing: house current occupational exposures/hazards: No caffeine: No ROS Obtained: Yes All systems reviewed & no additional complaints except as documented Constitutional Constitutional: Reports chills and Reports fever(s) Eyes Eyes: Denies eye discharge ENT Ears, Nose, Mouth, and Throat: Reports as per HPI Cardiovascular Cardiovascular: Denies chest pain Respiratory Respiratory: Denies chest congestion and Reports cough Gastrointestinal Gastrointestingal: Reports nausea; Denies abdominal pain, constipation, cramping, diarrhea or vomiting Musculoskeletal Musculoskeletal: Denies arthralgias Integumentary/Breasts Skin/Breast: Denies rash Neurologic Neurologic: Denies paresthesias Physical Exam General General appearance: alert and in no apparent distress Head Head exam: atraumatic, normocephalic and normal inspection Eye Eye exam: Present normal appearance, PERRL and EOMI ENT ENT exam: Present mucous membranes moist and normal external ear exam Expanded ENT Exam TM/Canal exam: Bilateral TM: erythema and bulging Nose exam: Absent sinus tenderness Mouth exam: Present normal external inspection; Absent drooling Teeth exam: Present normal inspection Throat exam: Present tonsillar erythema, tonsillomegaly and tonsillar exudate Neck Neck exam: Present normal inspection, full ROM and trachea midline; Absent tenderness, meningismus or lymphadenopathy Chest Chest inspection: Present normal inspection and symmetric chest wall rise; Absent tenderness Respiratory Respiratory exam: Present normal lung sounds bilaterally; Absent respiratory distress, wheezes, stridor or accessory muscle use Cardiovascular Cardiovascular exam: Present regular rate and normal rhythm; Absent systolic murmur or diastolic murmur Abdominal Exam Abdominal exam: Present soft and normal bowel sounds; Absent distention, te nderness, guarding, rebound or rigidity Extremities Exam Extremities exam: Present normal inspection and normal capillary refill; Absent calf tenderness Back Exam Back exam: Present normal inspection and full ROM; Absent tenderness, CVA tenderness (R) or CVA tenderness (L) Neurological Exam Neurological exam: Present alert, oriented X3 and CN II-XII intact Psychiatric Psychiatric exam: Present normal affect and normal mood Skin Skin exam: Present warm, dry, intact and normal color Medical Decision Making Medical Records Medical records reviewed: No I reviewed the patient's medical records. Screening: Per USPSTF and CDC recommendations, given the prevalence of disease in our region, it is our hospital?s policy to screen for HIV and viral Hepatitis for all patients aged 18 and over and those with ongoing risk factors. Alfredo Inquiry Pt receiving controlled substance: No Vital Signs: 01/28/24 08:35 Temperature 98.1 F Temperature Source Oral Pulse Rate [Left Brachial] 100 H Respiratory Rate 20 Blood Pressure [Left Arm] 157/107 H Blood Pressure Mean [Left Arm] 123 Blood Pressure Source [Left Arm] Automatic Cuff Blood Pressure Position [Left Arm] Sitting 02 Sat by Pulse Oximetry 95 Oxygen Delivery Method Room Air Lab Data Lab results reviewed: Yes I reviewed the patient's lab results.
[2024-01-28 09:29] VITALS: BP 157/107; PULSE 100; RESP 20; TEMP 36.7; O2SAT 95
[2024-01-28] MEDS: DEXAMETHASONE 4MG/ML 1ML VIAL 8 MG IM (09:35)
[2024-01-28 09:37] LABS: Influenza A, PCR Not Detected (NotDetected); Influenza B, PCR Not Detected (NotDetected)
[2024-01-28 10:22] LABS: Coronavirus 19, PCR Detected (NotDetected)
--- NOTE | 2024-01-28 14:22 | PC.NURSE ---
PATIENT NOTIFIED OF POSITIVE COVID TEST PER Catalina MCMAHON APRN
== END 2024-01-28 09:43 | disposition home or self-care (01) ==
PROVIDERS: Emergency Provider Nurse Practitioner Family; PCP Internal Medicine Adolescent Medicine
DX: U07.1 COVID-19 (principal); H10.9 Unspecified conjunctivitis; J32.9 Chronic sinusitis, unspecified; R50.9 Fever, unspecified; R09.81 Nasal congestion; H92.01 Otalgia, right ear; R05.8 Other specified cough; J02.9 Acute pharyngitis, unspecified
CPT/HCPCS: 87636; 99212; G0381; J1100